=== PATIENT | female | born 1990 | race Caucasian/White ===

== ENCOUNTER 2016-09-22 09:53 | Emergency (ER) | payer OTHER ==
[2016-09-22 10:13] VITALS: RESP 16; TEMP 98.6
[2016-09-22] MEDS ORDERED: NS 1,000 ML IV ONE (10:22)
--- NOTE | 2016-09-22 10:30 | UCPHY ---
H & P Time Seen by Provider: 09/22/16 10:15 Patient Type: New HPI/ROS: CHIEF COMPLAINT: Abdominal pain HPI: The patient is a 26-year-old female with a history of bipolar disorder. She complains of abdominal pain and nausea that has been present for several weeks. The patient was seen approximately 1 week ago by primary physician who diagnosed her with a stomach bug after undergoing a negative test. The patient states that her pain got somewhat better at that point but is now worsened in intensity. She describes it as present in her upper abdomen, cramping, with worsening with food and driving her car. She has been having regular bowel movements. She denies fever. No hematemesis. No dysuria. REVIEW OF SYSTEMS: Aside from elements discussed in the HPI, a comprehensive 10-point review of systems was reviewed and is negative. PMH: Bipolar, no history of abdominal surgery. SOCIAL HISTORY: Denies alcohol or drug abuse. FAMILY HISTORY: Reviewed, noncontributory PHYSICAL EXAM: General:Patient is alert, in no acute distress. ENT:Eyes are normal to inspection. ENT inspection normal. Neck: Normal inspection. Full range of motion. Respiratory:No respiratory distress. Breath sounds normal bilaterally. Cardiovascular: Regular rate and rhythm. Strong peripheral pulses. Normal cap refill. Abdomen:The abdomen is nontender to palpation. There are no peritoneal signs. There are normal bowel sounds. Back: Normal to inspection. No tenderness to palpation. Skin: Normal color. No rash. Warm and dry. Extremities: Normal appearance. Full range of motion. Neuro: Oriented x3. Normal motor function. Normal sensory function. Smoking Status: Never smoked Constitutional: Initial Vital Signs Temperature (C) 37 C 09/22/16 10:06 Heart Rate 88 09/22/16 10:06 Respiratory Rate 16 09/22/16 10:06 Blood Pressure 136/89 H 09/22/16 10:06 O2 Sat (%) 98 09/22/16 10:06 O2 Delivery Mode Room Air Allergies/Adverse Reactions: No Known Allergies Allergy (Unverified 09/22/16 10:29) Home Medications: Medication Instructions Recorded Adderall 10 mg Tablet 09/22/16 LaMICtal 09/22/16 Adeline Carbonate ER 09/22/16 MDM/Departure - MDM Medications Given: Discontinued Medications Sodium Chloride (Ns) 1,000 mls @ 0 mls/hr IV ONCE ONE PRN Reason: Wide Open Stop: 09/22/16 10:23 Last Admin: 09/22/16 10:40 Dose: 1,000 mls ED Course/Re-evaluation: This patient presents with several weeks of abdominal pain. Her workup is negative. There is no evidence for pancreatitis, , bowel obstruction, bowel perforation or appendicitis. At 11:45 a.m., the patient has told the nurse that she no longer wishes to remain in the Urgent Care. She refuses further workup and would like to go home. She understands that her workup is incomplete. - Depart Disposition: Home, Routine, Self-Care Clinical Impression: Abdominal pain Condition: Good Instructions: Gas and Bloating (ED), Abdominal Pain (ED) Additional Instructions: Follow-up with your primary doctor within 72 hours. Return to the Emergency Department for worsening pain, fever, severe vomiting, change in character or severity of pain or other worsening of condition. Referrals: NONE *PRIMARY CARE P,. [Primary Care Provider] - As per Instructions - PQRS PQRS Measurement: 134: Depression screening and followup, PRIME MD-PHQ2 (12 years and older) Over the last 2 weeks, how often have you been bothered by any of the following problems? 1. Feeling down, depressed, or hopeless? 2. Little interest or pleasure in doing things? Patient answered no to both 1 and 2 130: Documentation of medications. Reviewed all patient medications, doses, route and frequency. 226: Do you smoke? No. 51: 18 years old and older with diagnosis of COPD, spirometry performance. Spirometry not performed; equipment not available. Patient has no history of COPD 52: 18 years old and older with COPD and symptoms of COPD or FEV1<60% predicted prescribed a B Agonist. Spirometry not performed; equipment not available.
[2016-09-22 10:48] LABS: % IMMATURE GRANULYOCYTES 0.2 % (0.0-1.1); ABSOLUTE IMMATURE GRANULOCYTES 0.01 10^3/uL (0.00-0.10); ADD DIFF? NO; ADD MORPH? NO; ADD SCAN? NO; ATYPICAL LYMPHOCYTE FLAG 20 (0-99); FRAGMENT RBC FLAG 0 (0-99); HEMATOCRIT 41.2 % (38.0-47.0); HEMOGLOBIN 14.1 g/dL (12.6-16.3); LEFT SHIFT FLG 0 (0-99); LIPEMIA HEMOLYSIS FLAG 90 (0-99); MEAN CELL HEMOGLOBIN 31.3 pg (27.9-34.1); MEAN CELL HEMOGLOBIN CONCENTR. 34.2 g/dL (32.4-36.7); MEAN CELL VOLUME 91.4 fL (81.5-99.8); MEAN PLATELET VOLUME 9.2 fL (8.7-11.7); PLATELET CLUMPS FLAG 0 (0-99); PLATELET COUNT 267 10^3/uL (150-400); RED BLOOD CELL COUNT 4.51 10^6/uL (4.18-5.33); RED CELL DISTRIBUTION WIDTH 11.8 % (11.5-15.2)
[2016-09-22 11:01] LABS: ALANINE AMINOTRANSFERASE 39 IU/L (9-52); ALBUMIN 4.3 g/dL (3.5-5.0); ALKALINE PHOSPHATASE 68 IU/L (38-126); ANION GAP 12 mEq/L (8-16); ASPARTATE AMINOTRANSFERASE 21 IU/L (14-46); BILIRUBIN,TOTAL 0.8 mg/dL (0.1-1.4); BILIRUBIN-CONJUGATED 0.2 mg/dL (0.0-0.5); BILIRUBIN-UNCONJUGATED 0.6 mg/dL (0.0-1.1); CALCIUM 9.5 mg/dL (8.5-10.4); CARBON DIOXIDE 22 mEq/l (22-31); CHLORIDE 106 mEq/L (97-110); CREATININE 0.7 mg/dL (0.6-1.0); GLOMERULAR FILTRATION RATE > 60; GLUCOSE 98 mg/dL (70-100); POTASSIUM 4.3 mEq/L (3.5-5.2); SODIUM 140 mEq/L (134-144); TOTAL PROTEIN 7.3 g/dL (6.3-8.2)
[2016-09-22 12:10] VITALS: BP 120/75; PULSE 81; O2SAT 97
== END 2016-09-22 12:06 | disposition home or self-care (01) ==
LOC: CED 09:53
DX: R10.9 Unspecified abdominal pain (principal); R11.0 Nausea; F31.9 Bipolar disorder, unspecified
CPT/HCPCS: 74000-PO; 80048-PO; 80076-PO; 83690-PO; 84703-PO; 85025-PO; 96360-PO; G0463-PO